=== PATIENT | female | born 1950 | race Caucasian/White ===

== ENCOUNTER 2023-10-03 12:28 | Emergency (ER) | payer MEDICARE, OTHER, SELFPAY ==
[2023-10-03] VITALS (20 sets, daily range): BP systolic 153–195; BP diastolic 67–88; PULSE 44–59; RESP 13–22; TEMP 36.3; O2SAT 89–100; BMI 29.8
--- NOTE | 2023-10-03 12:47 | DI.RAD.S_ITS ---
PROCEDURE: XR CHEST 1V INDICATIONS: chest pain TECHNIQUE: One view of the chest was acquired. COMPARISON: None. FINDINGS: Surgical changes and devices: None. Lungs and pleura: Lungs are clear. No pleural effusions or pneumothorax. Mediastinum: Mediastinal contours appear normal. Heart size is mildly enlarged. Bones and chest wall: No suspicious bony lesions. Overlying soft tissues appear unremarkable. IMPRESSION: No acute pulmonary process. Mild cardiomegaly. Dictated by: Alexi Krishnamurthy M.D. on 10/03/2023 at 13:35 Approved by: Alexi Krishnamurthy M.D. on 10/03/2023 at 13:35
--- NOTE | 2023-10-03 12:47 | EKG_ITS ---
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
[2023-10-03 13:10] LABS: Add Manual Diff / Slide Review NO; Basophils Absolute Auto 0 /uL (0-100); Basophils Percent Auto 0.5 % (0-2); Eosinophils Absolute Auto 100 /uL (0-450); Eosinophils Percent Auto 1.5 % (2-4); Hematocrit 45.6 % (36-46); Hemoglobin 15.1 g/dL (12.0-16.0); Lymphocytes Absolute Auto 1400 /uL (1100-4500); Lymphocytes Percent Auto 18.6 % (25-40); Mean Corpuscular HGB Conc 33.1 % (30-36); Mean Corpuscular Hemoglobin 30.2 PG (26-34); Mean Corpuscular Volume 91.1 fL (80-100); Monocytes Absolute Auto 1000 /uL (0-900); Monocytes Percent Auto 13.4 % (3-14); Neutrophils Absolute Auto 4900 /uL (1500-7000); Platelet Count 230 X10^3/uL (150-400); Red Blood Cell Count 5.01 X10^6/uL (4.0-5.2); Red Cell Distribution Width 13.9 % (11.6-14.8); White Blood Cell Count 7.5 X10^3/uL (4.5-11.0)
[2023-10-03 13:18] LABS: INR 1.3 (0.9-1.3); Prothrombin Time 14.7 SECONDS (9.4-12.5)
[2023-10-03 13:21] LABS: PTT Partial Thromboplastin Tim 50 SECONDS (25.1-36.5)
--- NOTE | 2023-10-03 13:25 | PC.NURSE ---
Patient sinus zohaib at 44, asymptomatic.
--- NOTE | 2023-10-03 13:28 | PC.NURSE ---
Recent medication changes with PCP, stopped metoprolol due to excessive sweating. Patient noticed elevated heart rate in the 140's so resumed her metoprolol at 12.5. Has felt abnormal and checked pulse noted in 50's prior to arrival. Patient at rest on monitor sinus zohaib 44 bpm, I cant tell sitting here
[2023-10-03 13:29] LABS: Alanine Aminotransferase 22 IU/L (<35); Albumin 4.2 g/dL (3.5-5.0); Albumin Globulin Ratio 1.8 (1.0-2.8); Alkaline Phosphatase 85 U/L (38-126); Aspartate Aminotransferase 29 IU/L (14-36); Bilirubin Total 0.7 mg/dL (0.2-1.3); Blood Urea Nitrogen 19 mg/dL (7-17); Carbon Dioxide 30 mmol/L (22-32); Chloride 107 mmol/L (98-107); Creatine Kinase 140 U/L (30-135); Estimated Glomerular Filt Rate > 60 mL/min (>60); Globulin 2.4 g/dL (1.7-4.1); Glucose 96 mg/dL (80-110); HEMOLYSIS < 15 (0-50); Lipase 58 U/L (23-300); Magnesium 2.3 mg/dL (1.6-2.3); Potassium 3.9 mmol/L (3.4-5.1); Sodium 141 mmol/L (137-145); Total Protein 6.6 g/dL (6.3-8.2)
[2023-10-03 13:41] LABS: NT-proBNP (BNP-Adult 18+) 1270 pg/mL (<125); Troponin I < 0.012 ng/mL (0.01-0.034)
--- NOTE | 2023-10-03 15:07 | ED_ITS ---
HPI - Arrhythmia/Palpitations General Chief Complaint: Arrhythmia/Palpitations Stated Complaint: Cardiac symptoms Time Seen by Provider: 10/03/23 14:50 Source: patient Mode of arrival: Ambulatory History of Present Illness HPI narrative: Patient and are visiting here from [facility]. For family event. Patient has history of atrial fibrillation on metoprolol and Eliquis. Had echocardiogram and stress test a month ago back at home. She states it was normal. Last weekend patient experienced palpitations and just did not feel right, she used my cardia device and found her heart rate was 140. She sent the information to her cardiology office but has not heard back from them. Through the course of the week no chest pain. No shortness of breath. She was taken off metoprolol about 2 weeks ago because it made her dizzy and sweaty. She placed herself back on metoprolol 12.5 mg twice a day last week. Today again, she felt ?off? and used my cardia again, noted her heart rate was in the 40s. No syncope. No chest pain. Currently denies any symptoms. Related Data Previous Rx's Medication Instructions Recorded dronedarone 400 mg tablet (Multaq) 400 mg PO BID #20 tabs 10/03/23 Allergies Allergy/AdvReac Type Severity Reaction Status Date / Time Penicillins Allergy Rash Verified 10/03/23 12:40 Sulfa (Sulfonamide Allergy Rash Verified 10/03/23 12:40 Antibiotics) Review of Systems Review of Systems Narrative: GENERAL: negative chills, fatigue, malaise, fever, sweats. HEENT: negative sinus pain, ear pain, sore throat RESPIRATORY: negative dyspnea, cough CARDIOVASCULAR: negative chest pain, positive palpitations GASTROINTESTINAL: negative nausea, vomiting, abdominal pain : negative dysuria, frequency, hematuria MUSCULOSKELETAL: negative muscle or bony pain SKIN: negative rash, skin lesions NEUROLOGIC: negative weakness, numbness ROS Unobtainable: All systems reviewed & are unremarkable except as noted in HPI and below Patient History Social History Smoking Status: Never smoker Smoking Status: Never smoker alcohol intake frequency: a few times a week Substance Use Type: does not use Exam Narrative Exam Narrative: GENERAL: in no distress, not toxic not dyspneic HEAD: Normocephalic. EYES: Pupils equal round ENT: Mucous membranes moist. NECK: Trachea midline. CARDIOVASCULAR: Regular rate and rhythm, bradycardic, rate 54 RESPIRATORY: Clear to auscultation. Breath sounds equal bilaterally. No wheezes, rales, or rhonchi. GASTROINTESTINAL: Abdomen soft, non-tender EXTREMITIES: No gross deformities. BACK: No flank tenderness. NEURO: AOx4. SKIN: Warm and dry PSYCH: Not anxious, is cooperative Initial Vital Signs Initial Vital Signs: Vital Signs Temperature 97.3 F L 10/03/23 12:40 Pulse Rate 52 L 10/03/23 12:40 Respiratory Rate 18 10/03/23 12:40 Blood Pressure 191/88 H 10/03/23 12:40 Pulse Oximetry 100 10/03/23 12:40 Oxygen Delivery Method Room Air 10/03/23 12:40 Course Orders Ordered: Discontinued Medications Aspirin (Aspirin 81 Mg Chew Tab) 324 mg PO NOW ONE Stop: 10/03/23 12:48 Last Admin: 10/03/23 13:09 Dose: Not Given Documented By: KENNEDY Vital Signs Vital signs: Vital Signs - 8 hr 10/03/23 12:40 10/03/23 12:50 10/03/23 12:51 Temperature 97.3 F L Pulse Rate 52 L 59 L Respiratory Rate 18 Blood Pressure 191/88 H 190/86 H Pulse Oximetry 100 89 L Oxygen Delivery Method Room Air 10/03/23 12:51 10/03/23 13:00 10/03/23 13:01 Temperature Pulse Rate 57 L 47 L 47 L Respiratory Rate 22 Blood Pressure Pulse Oximetry 98 99 99 Oxygen Delivery Method 10/03/23 13:01 10/03/23 13:30 10/03/23 13:31 Temperature Pulse Rate 44 L 46 L Respiratory Rate 20 Blood Pressure 195/80 H Pulse Oximetry 97 98 Oxygen Delivery Method 10/03/23 13:31 10/03/23 14:00 10/03/23 14:00 Temperature Pulse Rate 46 L Respiratory Rate Blood Pressure 173/75 H 162/75 H Pulse Oximetry 97 Oxygen Delivery Method 10/03/23 14:28 10/03/23 14:28 10/03/23 14:30 Temperature Pulse Rate 49 L 50 L Respiratory Rate 15 13 Blood Pressure 175/67 H Pulse Oximetry 99 99 Oxygen Delivery Method 10/03/23 14:30 10/03/23 15:00 10/03/23 15:01 Temperature Pulse Rate 48 L 51 L Respiratory Rate 20 Blood Pressure 160/73 H Pulse Oximetry 98 98 Oxygen Delivery Method 10/03/23 15:01 Temperature Pulse Rate Respiratory Rate Blood Pressure 163/73 H Pulse Oximetry Oxygen Delivery Method MDM - Arrhythmia/Palpitations Lab Data 10/03/23 13:03 10/03/23 13:03 Labs: Lab Results 10/03/23 Range/Units 13:03 WBC 7.5 (4.5-11.0) X10^3/uL RBC 5.01 (4.0-5.2) X10^6/uL Hgb 15.1 (12.0-16.0) g/dL Hct 45.6 (36-46) % MCV 91.1 (80-100) fL MCH 30.2 (26-34) PG MCHC 33.1 (30-36) % RDW 13.9 (11.6-14.8) % Plt Count 230 (150-400) X10^3/uL Neut % (Auto) 66.0 (50-75) % Lymph % (Auto) 18.6 L (25-40) % [place] % (Auto) 13.4 (3-14) % Eos % (Auto) 1.5 L (2-4) % Baso % (Auto) 0.5 (0-2) % Neut # (Auto) 4900 (2600-4051) /uL Lymph # (Auto) 1400 (6738-5677) /uL [place] # (Auto) 1000 H (0-900) /uL Eos # (Auto) 100 (0-450) /uL Baso # (Auto) 0 (0-100) /uL PT 14.7 H (9.4-12.5) SECONDS INR 1.3 (0.9-1.3) APTT 50 H (25.1-36.5) SECONDS Sodium 141 (137-145) mmol/L Potassium 3.9 (3.4-5.1) mmol/L Chloride 107 (98-107) mmol/L Carbon Dioxide 30 (22-32) mmol/L BUN 19 H (7-17) mg/dL Creatinine 0.76 (0.52-1.04) mg/dL Estimated GFR > 60 (>60) mL/min BUN/Creatinine Ratio 25.0 H (6-22) Glucose 96 (80-110) mg/dL Calcium 9.0 (8.4-10.2) mg/dL Magnesium 2.3 (1.6-2.3) mg/dL Total Bilirubin 0.7 (0.2-1.3) mg/dL AST 29 (14-36) IU/L ALT 22 (<35) IU/L Alkaline Phosphatase 85 (38-126) U/L Total Creatine Kinase 140 H (30-135) U/L Troponin I < 0.012 (0.01-0.034) ng/mL NT-Pro-B Natriuret Pep 1270 H (<125) pg/mL Total Protein 6.6 (6.3-8.2) g/dL Albumin 4.2 (3.5-5.0) g/dL Globulin 2.4 (1.7-4.1) g/dL Albumin/Globulin Ratio 1.8 (1.0-2.8) Lipase 58 (23-300) U/L TSH 1.78 (0.47-4.68) uIU/mL Imaging Data Chest x-ray: Radiologist's Impresson: [place] [address] XRay Report Signed Patient: Talia Atwood MR#: [id number] : 1950 Acct:[id number] Age/Sex: 73 / F Date of Service: 10/03/23 Loc: ED Accession Number: [id number] Procedure: XR chest 1V Ordering Provider: Leobardo Malhotra MD PROCEDURE: XR CHEST 1V INDICATIONS: chest pain TECHNIQUE: One view of the chest was acquired. COMPARISON: None. FINDINGS: Surgical changes and devices: None. Lungs and pleura: Lungs are clear. No pleural effusions or pneumothorax. Mediastinum: Mediastinal contours appear normal. Heart size is mildly enlarged. Bones and chest wall: No suspicious bony lesions. Overlying soft tissues appear unremarkable. IMPRESSION: No acute pulmonary process. Mild cardiomegaly. Dictated by: Alexi Krishnamurthy M.D. on 10/03/2023 at 13:35 Approved by: Alexi Krishnamurthy M.D. on 10/03/2023 at 13:35 [facility] Narrative Medical decision making narrative: Patient and are visiting here from [facility]. For family event. Patient has history of atrial fibrillation on metoprolol and Eliquis. Had echocardiogram and stress test a month ago back at home. She states it was normal. Last weekend patient experienced palpitations and just did not feel right, she used my cardia device and found her heart rate was 140. She sent the information to her cardiology office but has not heard back from them. Through the course of the week no chest pain. No shortness of breath. She was taken off metoprolol about 2 weeks ago because it made her dizzy and sweaty. She placed herself back on metoprolol 12.5 mg twice a day last week. Today again, she felt ?off? and used my cardia again, noted her heart rate was in the 40s. No syncope. No chest pain. Currently denies any symptoms. After history and exam CBC CMP troponin EKG chest x-ray BNP PT INR PTT MDM Medical records reviewed: No recent visit for this complaint Differential considered: Includes but not limited to STEMI non-STEMI sick sinus syndrome a flutter AFib Lab Test results independently reviewed as above. Pertinent findings: WBC 7.5 hemoglobin 15.1 INR 1.3 sodium 141 potassium 3.9 magnesium 2.3 troponin less than 0.012 BNP 1270 Independently reviewed EKG sinus bradycardia rate 47 right bundle-branch block Imaging studies independently reviewed: Chest x-ray no acute finding Consultations: 3:48 p.m.. Spoke with patient's student driving instructor from [facility], Dr. Zepeda, who recommends patient is stopping her flecainide, stop metoprolol. Right prescription for patient Multaq 400 mg twice a day starting tomorrow. Patient is returning home in 2 days and to make appointment with him for follow up. Treatments: None indicated at this time Re-evaluations: 3:50 p.m.. Spoke with patient and results and my discussion her student driving instructor. They agree with treatment plan and medication changes. They are flying out this to return back to [place]. They desire discharge home Discussion: Appropriate for discharge home. Patient is describing palpitations with varying heart rate. Patient workup here is reassuring. Her cardiology provider was contacted and recommended medication changes and can follow up with him in the office, discharging from the ER. Return precautions reviewed. Patient agrees with treatment plan. She never had exertional chest pain or shortness of breath. No nausea or diaphoresis. No back pain. Diagnosis: Palpitation Discharge Plan Departure Patient Disposition: Home Clinical Impression: Palpitations Instructions: DI for Arrhythmias Activity Restrictions/Additional Instructions: Your student driving instructor was contacted today. He would like you to stop the flecainide as well as metoprolol. New prescription Multaq has been provided for you and printed off for you to start tomorrow. Please call the office now to make appointment with him. Please return home the next 2 days as planned. Return if worse if any questions or concerns. Your symptoms are likely due to palpitations. However, return immediately if worse if any questions or concerns or any difficulty with the new medication. Prescriptions: New Multaq 400 mg tablet 400 mg PO BID Qty: 20 0RF Rx Instructions: must administer with a meal/food Referrals: Miscellaneous,Doctor, MD [Primary Care Provider] - Stand Alone Forms: Patient Portal/API
[2023-10-03 15:59] LABS: Thyroid Stimulating Hormone 1.78 uIU/mL (0.47-4.68)
== END 2023-10-03 16:16 | disposition home or self-care (01) ==
PROVIDERS: Emergency Provider Emergency Medicine
DX: R00.2 Palpitations (principal); R07.9 Chest pain, unspecified; Z79.01 Long term (current) use of anticoagulants
CPT/HCPCS: 36415; 71045; 80053; 82550; 83690; 83735; 83880; 84443; 84484; 85025; 85610; 85730; 93005; 99283; 99284